=== PATIENT | female | born 1940 | race Hispanic/Latino ===

== ENCOUNTER → 2018-09-07 | Outpatient (CLI) | payer OTHER ==
[~2018-09-07] MED LIST: AZEL50FO TP; CHOL200074 PO; DOCU100T9 PO; LACT1CAP78 PO; MULT-1258 PO; MULT-29 PO; SIMV40TA59 PO; WHEA1POW2 PO
== END | disposition home or self-care (01) ==
LOC: RAH 07:33
PROVIDERS: ATTEND Family Medicine
DX: K43.9 Ventral hernia without obstruction or gangrene (principal); K45.8 Other specified abdominal hernia without obstruction or gangrene; Z90.49 Acquired absence of other specified parts of digestive tract
CPT/HCPCS: 74150